=== PATIENT | male | born 1955 | race Caucasian/White ===

== ENCOUNTER 2017-01-06 04:04 | Emergency (ER) | payer OTHER ==
[~2017-01-06] VITALS: Ht 177.8 cm; Wt 85.8 kg
[~2017-01-06 04:04] MED LIST: ASCORBIC ACID500 M3 PO; METHIMAZOLE10 MG PO; TRAMADOL HCL50 MG PO
[2017-01-06 04:08] VITALS: BP 162/79
[2017-01-06] MEDS ORDERED: KEFLEX500 MG PO (05:12)
== END 2017-01-06 05:31 | disposition home or self-care (01) ==
LOC: EME 04:04
DX: S61.212A Laceration without foreign body of right middle finger without damage to nail, initial encounter (principal); S61.214A Laceration without foreign body of right ring finger without damage to nail, initial encounter; S62.600B Fracture of unspecified phalanx of right index finger, initial encounter for open fracture; S60.041A Contusion of right ring finger without damage to nail, initial encounter; W29.3XXA Contact with powered garden and outdoor hand tools and machinery, initial encounter; Z88.0 Allergy status to penicillin
CPT/HCPCS: 73130; 99281; 99284